=== PATIENT | male | born 1995 | race Caucasian/White ===

== ENCOUNTER 2017-04-25 11:19 | Emergency (ER) | payer OTHER ==
[~2017-04-25] VITALS: Ht 177.8 cm; Wt 85.9 kg
[2017-04-25 11:20] VITALS: BP 133/73
[2017-04-25] MEDS ORDERED: IBUPROFEN 800 MG TAB PO ONE (15:00)
[2017-04-25 15:13] LABS: BASO # 0.1 10^3/uL (0.0-0.2); BASO % 0.7 % (0.0-1.0); EOS # 0.2 10^3/uL (0.0-0.50); EOS % 2.3 % (0.0-3.0); IMMATURE GRANULOCYTE % 0.5 % (0-0); LYMPH # 3.4 10^3/uL (1.5-6.5); LYMPH % 38.8 % (24.0-44.0); MEAN CORPUSCULAR HEMOGLOBIN 29.4 pg (27.0-33.0); MEAN CORPUSCULAR HGB CONC 33.4 g/dl (32.0-36.5); MEAN CORPUSCULAR VOLUME 87.9 fl (80.0-96.0); MONO # 0.7 10^3/uL (0.0-0.8); NEUTROPHILS # 4.4 10^3/uL (1.8-7.7); NEUTROPHILS % 49.7 % (36.0-66.0); PLATELET COUNT, AUTOMATED 323 10^3/uL (150-450); RED CELL DISTRIBUTION WIDTH 12.6 % (11.5-14.5); WHITE BLOOD COUNT 8.9 10^3/uL (4.0-10.0)
--- NOTE | 2017-04-25 15:28 | REP ---
Head CT without contrast: History: Syncope. Comparison study: No comparison study. CT findings: Bone window settings demonstrate an intact bony calvarium. There is no evidence of skull fracture or incidental bony calvarial lesion. The visualized paranasal sinuses appear clear. No intraorbital abnormality is seen. On soft tissue window setting images; the lateral, third, and fourth ventricles are normal in size and position. Soto-white differentiation pattern is normal above and below the tentorium. There are is no evidence of intracranial hemorrhage. No mass, edema, infarction, or midline shift is seen. No extra-axial fluid collection is appreciated. Impression: Negative noncontrast head CT. Signed by Andres Chaney MD 04/25/2017 03:20 P
[2017-04-25 15:39] LABS: ANION GAP 6 MEQ/L (8-16); BLOOD UREA NITROGEN 13 MG/DL (7-18); CARBON DIOXIDE LEVEL 31 MEQ/L (21-32); CHLORIDE LEVEL 104 MEQ/L (98-107); CREATININE FOR GFR 0.78 MG/DL (0.70-1.30); GLOMERULAR FILTRATION RATE > 60.0 (>60); GLUCOSE, FASTING 87 MG/DL (70-105); SODIUM LEVEL 141 MEQ/L (136-145)
== END 2017-04-25 16:31 | disposition home or self-care (01) ==
LOC: M ED 11:19
DX: R55 Syncope and collapse (principal); R51 Headache; F17.200 Nicotine dependence, unspecified, uncomplicated

== ENCOUNTER 2018-04-22 09:20 | Emergency (ER) | payer OTHER ==
[2018-04-22] MEDS: ACETAMINOPHEN TAB 650MG DOSE (2X325MG) PO (09:48)
== END 2018-04-22 10:22 | disposition home or self-care (01) ==
LOC: M ED 09:20
DX: S60.032A Contusion of left middle finger without damage to nail, initial encounter (principal); W19.XXXA Unspecified fall, initial encounter; Y92.410 Unspecified street and highway as the place of occurrence of the external cause; Y93.89 Activity, other specified; Y99.9 Unspecified external cause status
CPT/HCPCS: 73140

== ENCOUNTER 2018-06-23 22:06 | Emergency (ER) | payer OTHER ==
[~2018-06-23] VITALS: Ht 177.8 cm; Wt 95.5 kg
[2018-06-23] MEDS ORDERED: IBUP-1114 PO (22:19)
[2018-06-23] MEDS ORDERED: IBUPROFEN 800 MG TAB PO ONE (22:45)
[2018-06-23 23:48] VITALS: BP 131/63
--- NOTE | 2018-06-25 09:01 | REP ---
RIGHT LOWER LEG, AP AND LATERAL: There is no evidence of an acute fracture, dislocation or intrinsic bone disease. IMPRESSION: No fracture or dislocation. Electronically Signed by Jesus Soto MD 06/25/2018 06:45 P
== END 2018-06-23 23:45 | disposition home or self-care (01) ==
LOC: M ED 22:06
DX: S80.11XA Contusion of right lower leg, initial encounter (principal); W50.1XXA Accidental kick by another person, initial encounter; Y92.9 Unspecified place or not applicable; Y93.66 Activity, soccer; Y99.9 Unspecified external cause status